=== PATIENT | female | born 1985 | race African-American/Black ===

== ENCOUNTER 2024-06-04 22:16 | Emergency (ER) | payer OTHER ==
[~2024-06-04] VITALS: Ht 121.9 cm; Wt 50.0 kg
[2024-06-04 22:24] VITALS: O2SAT 96
[2024-06-04] MEDS: SODIUM CHLORIDE 0.9% 1,000 ML IV ONE (23:44)
[2024-06-04 23:49] LABS: BASOPHILS % 0.6 % (0.0-2.0); EOSINOPHILS % 1.1 % (0.0-5.0); HEMATOCRIT. 32.9 % (36.0-48.0); HEMOGLOBIN. 10.4 g/dL (12.0-16.0); MEAN CORPUSCULAR HEMOGLOBIN 27.2 pg (28.0-32.0); MEAN CORPUSCULAR HGB CONC 31.7 g/dL (31.0-37.0); MEAN CORPUSCULAR VOLUME 85.7 fL (81.0-99.0); MONOCYTES % 10.8 % (2.0-8.0); NEUTROPHILS % 67.5 % (40.0-76.0); PLATELET 266 x1000/uL (130-400); RED BLOOD CELL COUNT 3.84 mill/uL (4.2-5.4); RED CELL DISTRIBUTION WIDTH 16.8 % (11.6-14.6); WHITE BLOOD COUNT 3.8 x1000/uL (4.5-11.0)
[2024-06-04 23:57] LABS: CARBON DIOXIDE 26 mEq/L (21-32); CHLORIDE 108 mEq/L (98-107); POTASSIUM 3.3 mEq/L (3.5-5.1); SODIUM 140 mEq/L (136-145)
[2024-06-04 23:58] LABS: CALCIUM 8.3 mg/dL (8.7-10.4)
[2024-06-05 00:03] LABS: CREATININE 0.6 mg/dL (0.6-1.0); GLUCOSE 85 mg/dL (70-105)
[2024-06-05 00:09] LABS: ETHANOL BLOOD < 10 mg/dL (<10); UREA NITROGEN BLOOD < 5 mg/dL (9-23)
[2024-06-05 00:46] LABS: HCG SCREEN NEGATIVE
[2024-06-05 05:05] VITALS: BP 99/62; PULSE 65; RESP 11
== END 2024-06-05 05:35 | disposition home or self-care (01) ==
LOC: ER 22:16
DX: R55 Syncope and collapse (principal)
CPT/HCPCS: 80048; 80320; 84703; 83605; 85025; 36415; 71045; 70450; 96360; 96361; 99285; J7030; Z7610 ×2; G0480

== ENCOUNTER 2025-05-30 11:40 | Emergency (ER) | payer OTHER ==
[~2025-05-30] VITALS: Ht 139.7 cm; Wt 52.0 kg
[2025-05-30 11:59] VITALS: O2SAT 100
[2025-05-30] MEDS: KETOROLAC 30MG/ML VIAL IM ONE (13:05)
[2025-05-30] MEDS: CYCLOBENZAPRINE 10MG TABLET PO ONE (13:05)
[2025-05-30] MEDS: LIDOCAINE 5% PATCH TOP STA ×2 (13:06→14:00)
[2025-05-30] MEDS: ACETAMINOPHEN 325MG TABLET PO ONE (14:03)
[2025-05-30] MEDS ORDERED: KETO10TA2 MT (14:38)
[2025-05-30] MEDS ORDERED: LIDO700A30 TP (14:38)
[2025-05-30] MEDS ORDERED: METH-774 MT (14:38)
[2025-05-30] MEDS: HYDROCODONE/ACETAMINOPHEN 5/325MG TABLET PO ONE (14:41)
[2025-05-30] MEDS: DEXAMETHASONE 4MG TABLET PO ONE (14:41)
[2025-05-30 14:57] VITALS: BP 104/73; PULSE 77; RESP 18; TEMP 36.7; O2SAT 100
== END 2025-05-30 14:58 | disposition home or self-care (01) ==
LOC: ER 11:40
DX: M54.2 Cervicalgia (principal); Z79.899 Other long term (current) drug therapy; Z98.890 Other specified postprocedural states; V49.9XXA Car occupant (driver) (passenger) injured in unspecified traffic accident, initial encounter; Y93.89 Activity, other specified; Y92.89 Other specified places as the place of occurrence of the external cause; Y99.8 Other external cause status
CPT/HCPCS: 99285; 96372; J1885; J8540

== ENCOUNTER 2025-07-11 14:29 | Emergency (ER) | payer OTHER ==
[~2025-07-11] VITALS: Ht 142.2 cm; Wt 48.9 kg
[~2025-07-11 14:29] MED LIST: KETO10TA2 MT; LIDO700A30 TP; METH-774 MT
[2025-07-11 14:39] VITALS: O2SAT 98
[2025-07-11 16:02] LABS: BASOPHILS % 0.9 % (0.0-2.0); EOSINOPHILS % 0.1 % (0.0-5.0); HEMATOCRIT. 32.3 % (36.0-48.0); HEMOGLOBIN. 11.1 g/dL (12.0-16.0); LYMPHOCYTES % 17.8 % (20.0-50.0); MEAN PLATELET VOLUME 7.0 fl (7.4-10.4); MONOCYTES % 6.5 % (2.0-8.0); NEUTROPHILS % 74.7 % (40.0-76.0); PLATELET 348 x1000/uL (130-400); RED BLOOD CELL COUNT 3.32 mill/uL (4.2-5.4); RED CELL DISTRIBUTION WIDTH 13.5 % (11.6-14.6)
[2025-07-11 16:17] LABS: CREATININE 0.6 mg/dL (0.6-1.0); TROPONIN I HIGH SENSITIVITY < 4 ng/L (3.0-34)
[2025-07-11 16:18] LABS: UREA NITROGEN BLOOD 7 mg/dL (9-23)
[2025-07-11 16:34] LABS: INR 1.0
[2025-07-11] MEDS: FAMOTIDINE 20MG TABLET PO STA (19:56)
[2025-07-11] MEDS: PANTOPRAZOLE 40MG DR TABLET PO ONE (19:57)
[2025-07-11] MEDS ORDERED: FAMO40TA7 MT (20:15)
[2025-07-11 20:22] VITALS: BP 132/86; PULSE 62; RESP 15; TEMP 36.7; O2SAT 100
== END 2025-07-11 20:22 | disposition home or self-care (01) ==
LOC: ER 14:29
DX: R07.89 Other chest pain (principal); R06.02 Shortness of breath; Z98.890 Other specified postprocedural states
CPT/HCPCS: 36415; 71045; 80048; 84484; 85025; 85379; 93005; 99285